=== PATIENT | female | born 1945 | race Caucasian/White ===

== ENCOUNTER 2021-09-17 10:14 | Outpatient (CLI) | payer MEDICARE ==
[2021-09-17] MEDS ORDERED: NITROGLYCERIN 0.4 MG/TAB BOTTLE ONE (10:42)
[2021-09-17] MEDS ORDERED: IOHEXOL-350 100 ML VIAL IV ONE (10:42)
[2021-09-17] MEDS ORDERED: METOPROLOL TARTRATE INJ 5 MG/5 ML AMPUL ONE (10:43)
[2021-09-17] MEDS ORDERED: CT SWABBABLE VALVE TRANS SET 1 EA INFUS.SET MC ONE (10:43)
[2021-09-17] MEDS ORDERED: IV NS 0.9% 250 ML IV ONE (10:43)
[2021-09-17] MEDS: METOPROLOL TARTRATE INJ 5 MG/5 ML AMPUL IVP PRN ×2 (10:56→11:08)
[2021-09-17] MEDS ORDERED: NITROGLYCERIN 0.4 MG/TAB BOTTLE SL PRN (11:00)
[2021-09-17 11:08] VITALS: BP 107/70
== END 2021-09-17 23:59 | disposition home or self-care (01) ==
LOC: CT 10:14
PROVIDERS: ATTEND Student in an Organized Health Care Education/Training Program
DX: I51.7 Cardiomegaly (principal); I31.3 Pericardial effusion (noninflammatory); I77.89 Other specified disorders of arteries and arterioles; K44.9 Diaphragmatic hernia without obstruction or gangrene; I70.0 Atherosclerosis of aorta
CPT/HCPCS: 75574; J3490; J7050; Q9967